=== PATIENT | female | born 1985 | race Caucasian/White ===

== ENCOUNTER 2016-11-07 18:30 | Emergency (ER) | payer OTHER ==
[2016-11-07 18:47] VITALS: TEMP 99.1
[2016-11-07] MEDS ORDERED: IBUPROFEN 600 MG TAB PO ONE (19:01)
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
[2016-11-07] MEDS ORDERED: traMADol 50 MG TAB PO ONE (20:17)
[2016-11-07 20:25] VITALS: BP 132/96; PULSE 94; RESP 16; O2SAT 98
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
== END 2016-11-07 20:21 | disposition home or self-care (01) ==
LOC: CED 18:30
DX: S13.4XXA Sprain of ligaments of cervical spine, initial encounter (principal); V43.52XA Car driver injured in collision with other type car in traffic accident, initial encounter; Y92.411 Interstate highway as the place of occurrence of the external cause; M50.221 Other cervical disc displacement at C4-C5 level; M50.222 Other cervical disc displacement at C5-C6 level
CPT/HCPCS: 72100-PO; 72125-PO; 99203-PO; G0463-PO; L0172

== ENCOUNTER 2018-03-01 10:41 | Emergency (ER) | payer MEDICAID, OTHER ==
--- NOTE | 2018-03-01 11:26 | EDPHY ---
H & P Stated Complaint: back/LLE pain Time Seen by Provider: 03/01/18 11:14 HPI/ROS: CHIEF COMPLAINT: Acute low back pain and new onset radicular symptoms HISTORY OF PRESENT ILLNESS: 32-year-old female arrives via private vehicle complaining of acute left low back pain and new onset left lower extremity radiculopathy/radicular pain for the past 3 days. This started when she was getting up off of the sofa, twisted and felt immediate onset of pain and radicular symptoms. Pain is reproducible as is the radiculopathy with rotational movements to the right at the waist. Patient has previously seen Dr. Aleks bolanos, spoke with the office this morning was recommend she come to the ER for an MRI due to her new neurologic symptoms in her left lower extremity. Denies: Incontinence, retention, saddle anesthesia fever, chills, flu-like symptoms. REVIEW OF SYSTEMS: A ten point review of systems was performed and is negative with the exception of the items mentioned in the HPI PAST MEDICAL & SURGICAL HISTORY: No pertinent medical or surgical history SOCIAL HISTORY: Works as a respiratory therapist at [employer] PHYSICAL EXAM (Prior to examination, patient consented to physical exam, hands were washed and my usual and customary physical exam procedures followed) 1) GENERAL: Well-developed, well-nourished, alert and oriented. Appears to be in no acute distress. 2) HEAD: Normocephalic, atraumatic 3) HEENT: Pupils equal, round, reactive to light bilaterally. Sclera anicteric. Nasopharynx, oropharynx, clear, no lesions. 4) NECK: Full range of motion, no meningeal signs. 5) LUNGS: Clear auscultation bilaterally, no wheezes, no rhonchi, no retractions. 6) HEART: Regular rate and rhythm, no murmur, no heave, no gallop. 7) ABDOMEN: No guarding, no rebound, no focal tenderness, negative McBurney's, negative Guaman's, negative Rovsing's, negative peritoneal sign, 8) MUSCULOSKELETAL: Moving all extremities, no focal areas of tenderness, no obvious trauma. No peripheral edema or discoloration. 9) BACK: tender to palpation paraspinous muscle. Positive straight leg lift test on the left to approximately 15 degrees at which point radicular symptoms are reproduced as well as with rotation movement specifically to the right at the waist. Tender to palpation left SI joint. No CVA tenderness, no midline vertebral tenderness, no fluctuance, no step-off, no obvious trauma, no visual or palpable abnormality. Patella, Achilles reflexes intact to bilateral strength 5/5 10) SKIN: No rash, no petechiae. 11) NEURO: Awake, alert, and oriented to person, place and time. Answers questions appropriately. There were no obvious focal neurologic abnormalities. No cerebellar dysfunction. Normal steady gait. Upper and lower extremities bilaterally with strength 5 / 5, reflexes 2+.. DIFFERENTIAL DIAGNOSIS: In no particular order, including but not limited to, fracture, sprain/strain, cauda equina, spinal infectious etiology. MEDICAL DECISION MAKING Lower index of suspicion for cauda equina, epidural abscess, epidural hematoma, lumbar myositis, diskitis, as the patient is neurologically intact in the lower extremities, has patella and Achilles reflexes intact and equal bilaterally, has no neurologic deficits, no incontinence, no retention, no midline pain, no fluctuance, afebrile, no flulike symptoms. Pain may be secondary to muscular strain, may be secondary to discogenic etiology. At this point I do not identify definitive indication for emergent MRI, however patient may necessitate this on an outpatient basis. Patient given acute back pain precautions. Patient verbalizes understanding of discharge instructions. I believe them be competent decision-makers. All questions and concerns have been addressed by me. Ample opportunity for questions have been provided . The patient understands that this diagnosis is provisional and can never be 100 % accurate. Usual and customary warnings were given concerning the clinical impression and all the patient's questions were answered. The patient was instructed to return to the emergency department should her symptoms worsen or return, or develop any new symptoms, otherwise to followup as directed in discharge instructions. - Personal History LMP (Females 10-55): IUD In Place Current Tetanus/Diphtheria Vaccine: Yes Current Tetanus Diphtheria and Acellular Pertussis (TDAP): Yes - Medical/Surgical History Hx Asthma: No Hx Chronic Respiratory Disease: No Hx Diabetes: No Hx Cardiac Disease: No Hx Renal Disease: No Hx Cirrhosis: No Hx Alcoholism: No Hx HIV/AIDS: No Hx Splenectomy or Spleen Trauma: No Other PMH: degenerative disc disease in neck, thyroidectomy, lisa - Social History Smoking Status: Never smoked Constitutional: Initial Vital Signs Temperature (C) 37.1 C 03/01/18 10:49 Heart Rate 89 03/01/18 10:49 Respiratory Rate 16 03/01/18 10:49 Blood Pressure 135/105 H 03/01/18 10:49 O2 Sat (%) 100 03/01/18 10:49 O2 Delivery Mode Room Air Allergies/Adverse Reactions: No Known Allergies Allergy (Unverified 03/01/18 10:48) Home Medications: Medication Instructions Recorded traMADol [Ultram 50 mg (*)] 50 mg PO Q4-6PRN PRN #20 tab 11/07/16 [place] Thyroid 03/01/18 Hydrocodone/APAP 5/325 [[place] 1 tab PO Q6 PRN #15 tab 03/01/18 5/325 (RX)] methylPREDNISolone [Medrol Dose 4 mg PO DAILY #1 ea 03/01/18 Victor Manuel] Medical Decision Making ED Course/Re-evaluation: MRI ordered on this patient for for evaluation of new onset back pain with new onset neurologic symptoms, namely radicular pain. 1:03 p.m.: Consultation with Dr. Gregorio Neurosurgery, reviewed the imaging studies. He recommended starting patient on Medrol Dosepak, follow up in the office. Plan will be discharge home with pain management. Patient feels comfortable with this plan. I reviewed the imaging results with her. Usual customary back pain precautions instructions provided. Care of patient under supervision of secondary supervising physician Dr Alvarado . Departure - Departure Disposition: Home, Routine, Self-Care Clinical Impression: Acute lumbar radiculopathy, Lumbar disc herniation Condition: Good Instructions: Lumbar Disc Herniation (ED), Lumbar Radiculopathy (ED) Additional Instructions: Seek medical attention if you develop new or worsening pain, if you develop bladder or bowel dysfunction, numbness around your perineum, foot drop, or any other symptoms that concern you. Referrals: [place] Ravi MD [Medical Doctor] - 2-3 days, call for appt. Prescriptions: Hydrocodone/APAP 5/325 [[place] 5/325 (RX)] 1 tab PO Q6 PRN #15 tab PRN Reason: Pain, Severe methylPREDNISolone [Medrol Dose Victor Manuel] 4 mg PO DAILY #1 ea
[2018-03-01 13:19] VITALS: BP 143/73
== END 2018-03-01 13:19 | disposition home or self-care (01) ==
DX: M54.16 Radiculopathy, lumbar region (principal); M51.26 Other intervertebral disc displacement, lumbar region